=== PATIENT | female | born 1985 | race Two or more races ===

== ENCOUNTER 2017-11-29 13:31 | Emergency (ER) | payer SELFPAY ==
[~2017-11-29] VITALS: Ht 165.1 cm; Wt 61.2 kg
[2017-11-29 13:58] VITALS: BP 111/69
[2017-11-29] MEDS ORDERED: METHOCARBAMOL 500 MG TAB PO ONE (15:00)
== END 2017-11-29 17:31 | disposition home or self-care (01) ==
LOC: ER 13:31
DX: M54.2 Cervicalgia (principal); M54.9 Dorsalgia, unspecified
CPT/HCPCS: 72125; 81025